=== PATIENT | female | born 1990 | race Caucasian/White ===

== ENCOUNTER 2021-05-28 11:44 | Emergency (ER) | payer OTHER ==
[~2021-05-28] VITALS: Ht 177.8 cm; Wt 81.8 kg
[2021-05-28 11:55] VITALS: BP 163/93
[2021-05-28] MEDS ORDERED: HYDR-3965 PO (13:33)
== END 2021-05-28 13:39 | disposition home or self-care (01) ==
LOC: ER 11:45
DX: M54.2 Cervicalgia (principal); M25.512 Pain in left shoulder; R20.2 Paresthesia of skin; Z88.8 Allergy status to other drugs, medicaments and biological substances; Z79.899 Other long term (current) drug therapy; V89.2XXA Person injured in unspecified motor-vehicle accident, traffic, initial encounter; Y92.89 Other specified places as the place of occurrence of the external cause; Y99.8 Other external cause status
CPT/HCPCS: 99283

== ENCOUNTER 2024-06-20 16:09 | Outpatient (CLI) | payer BC | END 2024-06-20 23:59 | disposition home or self-care (01) | LOC: RAD 16:09 | PROVIDERS: ATTEND Physician Assistant Surgical | DX: S92.251A Displaced fracture of navicular [scaphoid] of right foot, initial encounter for closed fracture (principal); M79.671 Pain in right foot; X58.XXXA Exposure to other specified factors, initial encounter; Y93.89 Activity, other specified; Y92.89 Other specified places as the place of occurrence of the external cause; Y99.8 Other external cause status | CPT/HCPCS: 73700 ==